=== PATIENT | male | born 1980 | race African-American/Black ===

== ENCOUNTER 2017-05-01 06:45 | Inpatient (IN) | payer SELFPAY ==
[~2017-05-01] VITALS: Ht 172.7 cm; Wt 123.8 kg
--- NOTE | 2017-05-01 06:49 | NUR ---
BIB WHEELCHAIR TO ER BED 4
[2017-05-01 06:55] VITALS: BP 127/72
--- NOTE | 2017-05-01 07:02 | NUR ---
36M BIB SELF C/O LEFT SIDED CHEST PAIN, NON-RADIATING, PRESSURE, 4/10 X LAST NIGHT; PT C/O SHORTNESS OF BREATH WITH PRODUCTIVE COUGH AND YELLOW PHLEGM X LAST NIGHT; PT STATES " I HAVE CHF"; BL CRACKLES HEARD, RR EVEN, DEEP, AND LABORED, TACHYPNEA AND TACHYCARDIA NOTED ON THE MONITOR AT THIS TIME; PT AA&OX4, PERRLA, STATES NO N/V/D AT THIS TIME, SKIN IS WARM/DRY/INTACT; PT RESTING IN BED WITH HOB ELEVATED AND IN LOWEST POSITION; POSITIONED FOR COMFORT; ER MD MADE AWARE OF STATUS. WILL CONTINUE TO MONITOR.
--- NOTE | 2017-05-01 07:04 | NUR ---
ER MD DR. DE JESUS EVALUATING PT AT BEDSIDE.
[2017-05-01] MEDS ORDERED: ASPIRIN 81 MG TAB.CHEW PO ONE (07:10)
[2017-05-01] MEDS ORDERED: NITROGLYCERIN 2% 1 GM PKT TP ONE (07:10)
--- NOTE | 2017-05-01 07:14 | NUR ---
XRAY AT BEDSIDE.
[2017-05-01 07:59] LABS: HEMATOCRIT 40.7 % (36-52); MEAN CORPUSCULAR HEMOGLOBIN 26 pg (27-31); MEAN CORPUSCULAR HGB CONC 32 g/dL (33-37); MEAN CORPUSCULAR VOLUME 81 fL (80-94); PLATELET COUNT (AUTO) 202 K/uL (140-450); RED BLOOD CELL COUNT(AUTO) 5.04 MIL/uL (4.20-6.10); RED CELL DISTRIBUTION WIDTH 15.1 % (11.6-13.7)
[2017-05-01] MEDS ORDERED: FUROSEMIDE 20 MG/2 ML VIAL IVP ONE (08:05)
[2017-05-01 08:09] LABS: ANION GAP 13.6 (8-16); CARBON DIOXIDE 22.8 mmol/L (21-32); CREATININE 1.4 mg/dL (0.7-1.3); POTASSIUM 4.4 mmol/L (3.5-5.1)
[2017-05-01 08:17] LABS: LYMPHOCYTES % (MANUAL) 22 % (20-46); MONOCYTES % (MANUAL) 8 % (5-12)
[2017-05-01 08:24] LABS: ALBUMIN 2.9 g/dL (3.4-5.0); TOTAL BILIRUBIN 0.2 mg/dL (0.0-1.0)
[2017-05-01] MEDS ORDERED: AZITHROMYCIN 500 MG in DEXTROSE 5% 250 ML IV ONE (08:25)
[2017-05-01] MEDS ORDERED: CARV12.5 PO (08:38)
[2017-05-01] MEDS ORDERED: FURO-570 PO (08:38)
[2017-05-01] MEDS ORDERED: BENA20TA PO (08:38)
[2017-05-01] MEDS ORDERED: NACL 0.9% 1,000 ML IV SCH (08:40)
[2017-05-01] MEDS ORDERED: HYDROcodone/APAP 7.5/325 MG 1 TAB PO PRN (08:40)
[2017-05-01] MEDS ORDERED: ACETAMINOPHEN 325 MG TAB PO PRN (08:40)
[2017-05-01] MEDS ORDERED: ONDANSETRON 4 MG/2 ML VIAL IVP PRN (08:40)
[2017-05-01] MEDS ORDERED: cefTRIAXone 1,000 MG VIAL ONE (08:44)
[2017-05-01] MEDS ORDERED: AZITHROMYCIN 500 MG INJ VIAL IV ONE (08:44)
--- NOTE | 2017-05-01 08:52 | NUR ---
REPORT GIVEN TO MARIOLA YOUNGER.
--- NOTE | 2017-05-01 08:52 | NUR ---
ZITHROMAX 500MG ORDERED BY ER MD DR. DE JESUS NOT GIVEN IN ER ROCEPHIN INFUSING AT THIS TIME; ENDORSED ZITHROMAX TO CARISA GARNETT DURING REPORT; ZITHROMAX TAKEN TO FLOOR WITH PATIENT.
[2017-05-01] MEDS: DOCUSATE SODIUM 100 MG GELCAP PO SCH ×2 (09:00→20:21)
--- NOTE | 2017-05-01 09:06 | NUR ---
Patient will be admitted to care of DR. BRIAN. Admited to TELEMETRY. Will go to room 106A. Belongings list completed. Report to MARIOLA YOUNGER.
[2017-05-01] MEDS ORDERED: NITROGLYCERIN 0.4 MG TAB SL PRN (09:10)
[2017-05-01] MEDS ORDERED: ALBUTEROL SULFATE/IPRATROPIU 3 ML SOL IH PRN (09:10)
[2017-05-01 09:15] VITALS: BP 112/69
--- NOTE | 2017-05-01 10:00 | NUR ---
Admitted from ED , with chief complaint of SOB. PT AAOX4, PT ON 2 LPM NASAL CANNULA WITH 96% O2 SATS, NO C/O PAIN AT THIS TIME. IV TO LT WRIST PATENT AND INTACT. CHEST, DIMINISHED AIR ENTRY TO THE BASES, CRACKLES HEARD BILATERALLY. PT IS A 36 y/o ,Male, Cooperative,oriented to call light, bed, phone,television, bathroom, smoking policy,visiting hours, procedures, ID bracelet on. Belongings list checked. INSTRUCTED PT TO CALL FOR ASSISTANCE, CALL LIGHT WITHIN REACH, PT VERBALIZED UNDERSTANDING.
[2017-05-01 10:05] LABS: CHOL/HDL RATIO 3.5 (1-4.5); FREE T4 (FREE THYROXINE) 1.08 ng/dL (0.76-1.46); MAGNESIUM 1.9 mg/dL (1.8-2.4); PHOSPHORUS 3.4 mg/dL (2.5-4.9); THYROID STIMULATING HORMONE 2.46 uIU/mL (0.34-3.74)
[2017-05-01] MEDS ORDERED: LEVOFLOXACIN 750 MG/D5W PREMIX 150 ML IV SCH (11:00)
[2017-05-01] MEDS ORDERED: guaiFENesin 600 MG TABER PO SCH ×2 (11:31→21:00)
[2017-05-01 11:39] LABS: APPEARANCE,URINE CLEAR (CLEAR); BILIRUBIN,URINE NEGATIVE (NEGATIVE); BLOOD, URINE NEGATIVE (NEGATIVE); COLOR,URINE YELLOW (YELLOW); LEUKOCYTE ESTERASE ,URINE NEGATIVE (NEGATIVE); NITRITE, URINE NEGATIVE (NEGATIVE); UGLUCOSE NEGATIVE (NEGATIVE)
[2017-05-01 11:45] LABS: BARBITURATE, URINE NEG. ng/ml (NEG <=200); BENZODIAZEPINE, URINE NEG. ng/mL (NEG <=200); CANNABINOID, URINE NEG. ng/mL (NEG <=50); COCAINE, URINE NEG. ng/mL (NEG <=300); OPIATE, URINE NEG. ng/mL (NEG <=2000); PHENCYCLIDINE SCREEN,URINE NEG. ng/mL (NEG <=25)
[2017-05-01 12:00] VITALS: BP 120/75
--- NOTE | 2017-05-01 12:00 | NUR ---
PT SEEN BY DR. LEDBETTER WITH NEW ORDERS.
[2017-05-01] MEDS: FUROSEMIDE 40 MG/4 ML VIAL IVP SCH ×2 (12:47→20:13)
[2017-05-01] MEDS: ALBUTEROL SULFATE/IPRATROPIU 3 ML SOL IH SCH ×2 (12:51→18:40)
[2017-05-01] MEDS: PIPER/TAZO 3.375GM/D5W PREMIX 50 ML IV SCH ×2 (13:00→20:14)
--- NOTE | 2017-05-01 13:10 | NUR ---
PT PLACED ON BIPAP FOR DISTRESS PER DR. LEDBETTER SETTINGS 03/09 RR14 FIO2 40% TO USE PRN FOR DISTRESS ALARMS ON AND FUNCTIONING PROPERLY, TAYLOR LOZADA AT HOB B\S ARE CLEAR PT IS SITTING ON SIDE OF BED Addendum: 05/01/17 at 1320 by Génesis Ordonez RT TX GIVEN BEFORE PLACING ON BIPAP
--- NOTE | 2017-05-01 13:57 | NUR ---
PT TOOK BIPAP OFF HE STATES ITS NOT WORKING DOES NOT WANT IT NOW NURSE INFECTION CONTROLAHMET SANTORO AT BEDSIDE PLACED PT ON 3LNC
--- NOTE | 2017-05-01 15:15 | NUR ---
PT REFUSED VENOUS DOPPLER ULTRASOUND TO R/O DVT, STATED HE DOES NOT NEED IT. RISKS AND CONSEQUENCES EXPLAINED TO PT. DR. ALLEN NOTIFIED. Addendum: 05/01/17 at 1557 by Kathrin Abdullahi RN RISKS AND CONSEQUENCES EXPLAINED TO PT, VERBALIZED UNDERSTANDING.
--- NOTE | 2017-05-01 15:55 | NUR ---
PT BLOOD DRAW FOR SCHEDULED TROPONIN. RISKS AND CONSEQUENCES EXPLAINED TO PT, VERBALIZED UNDERSTANDING. DR. ALLEN NOTIFIED.
[2017-05-01 16:00] VITALS: BP 93/63
--- NOTE | 2017-05-01 18:10 | NUR ---
PT SEEN BY DR. GIFFORD WITH NEW ORDERS.
--- NOTE | 2017-05-01 19:06 | NUR ---
PT RESTING. NO SOB NOTED. NO COMPLAINTS MADE AT THIS TIME. WILL ENDORSE TO NEXT SHIFT NURSE FOR CONTINUITY OF CARE.
--- NOTE | 2017-05-01 19:07 | NUR ---
PT RESTING. NO SOB NOTED. NO COMPLAINTS MADE AT THIS TIME. WILL ENDORSE TO NEXT SHIFT NURSE FOR CONTINUITY OF CARE.
--- NOTE | 2017-05-01 19:50 | NUR ---
PT SEEN SLEEPING ON HIS STOMACH, EASILY AROUSABLE, STATED HE PREFER TO SLEEP ON THIS POSITION, NO SOB NOTED, VITAL SIGNS STABLE, ST ON TELE, DENIES CHEST PAIN, CONTINUED ON O2 AT 3L/NC, ALL NEEDS ATTENDED.
[2017-05-01 20:00] VITALS: BP 108/67
[2017-05-01] MEDS: guaiFENesin 600 MG TABER PO SCH (20:13)
[2017-05-01] MEDS: CARVEDILOL 12.5 MG TAB PO SCH (20:14)
--- NOTE | 2017-05-01 20:15 | NUR ---
DUE MEDS ADMINISTERED, REFUSED COLACE AND LIPITOR STATED "I DON'T NEED THAT", RISK AND BENEFITS EXPLAINED BUT PT STILL REFUSED, ALL NEEDS ATTENDED.
[2017-05-01] MEDS: ATORVASTATIN 20 MG TAB PO SCH (20:21)
[2017-05-01] MEDS ORDERED: methylPREDNISolone SS 40 MG/ML VIAL IVP SCH (21:00)
--- NOTE | 2017-05-01 22:00 | NUR ---
PT VOIDED 1000ML CLEAR YELLOW URINE PER URINAL, NO SOB NOTED, MONITORED CLOSELY.
[2017-05-02] VITALS: BP 106/60
--- NOTE | 2017-05-02 | NUR ---
PT SLEEPING ON HIS STOMACH, EASILY AROUSABLE, NO SIGNS OF DISTRESS, VITAL SIGNS STABLE, CONTINUE TO MONITOR CLOSELY.
--- NOTE | 2017-05-02 02:50 | NUR ---
PT SLEEPING, NO SIGNS OF DISTRESS, REPORT GIVEN TO MARIOLA ANDERSON FOR CONTINUITY OF CARE.
--- NOTE | 2017-05-02 02:55 | NUR ---
RECEIVED REPORT FROM JOSELUIS. PT IS SLEEPING, EASY TO AROUSE. ON 02 2L NC. NO SIGNS OF ACUTE DISTRESS NOTED. RESPIRATIONS EVEN AND UNLABORED. SKIN COLOR APPROPRIATE TO ETHNICITY. IV ACCESS INTACT AND PATENT. BED IN LOW POSITION, BILATERAL HALF SIDE RAILS UP, CALL LIGHT WITHIN REACH, WILL CONTINUE TO MONITOR.
[2017-05-02 04:00] VITALS: BP 117/57
[2017-05-02] MEDS: PIPER/TAZO 3.375GM/D5W PREMIX 50 ML IV SCH ×3 (05:38→21:35)
[2017-05-02] MEDS: FUROSEMIDE 40 MG/4 ML VIAL IVP SCH ×3 (05:39→21:00)
[2017-05-02] MEDS: ALBUTEROL SULFATE/IPRATROPIU 3 ML SOL IH SCH ×3 (07:02→18:46)
--- NOTE | 2017-05-02 07:02 | NUR ---
PT WANTED TO SLEEP REFUSED BREATHING TX NO SIGNS OF DISTRESS NOTED AT THIS TIME
[2017-05-02 07:04] LABS: BASOPHILS # (AUTO) 0.4 K/uL (0.00-0.22); BASOPHILS % (AUTO) 3.2 % (0.0-2.0); EOSINOPHILS # (AUTO) 0.1 K/uL (0-0.4); HEMATOCRIT 38.5 % (36-52); HEMOGLOBIN 12.4 g/dL (12.0-18.0); LYMPHOCYTES # (AUTO) 1.8 K/uL (2.0-11.5); MEAN CORPUSCULAR HEMOGLOBIN 26 pg (27-31); MEAN CORPUSCULAR HGB CONC 32 g/dL (33-37); MEAN CORPUSCULAR VOLUME 81 fL (80-94); MONOCYTES # (AUTO) 0.5 K/uL (0.8-1.0); MONOCYTES % (AUTO) 3.9 % (1.7-9.3); NEUTROPHILS # (AUTO) 8.7 K/uL (1.8-7.7); NEUTROPHILS % (AUTO) 75.9 % (42.2-75.2); PLATELET COUNT (AUTO) 189 K/uL (140-450); RED BLOOD CELL COUNT(AUTO) 4.74 MIL/uL (4.20-6.10); RED CELL DISTRIBUTION WIDTH 15.2 % (11.6-13.7); WHITE BLOOD COUNT (AUTO) 11.5 K/uL (4.8-10.8)
[2017-05-02 07:18] LABS: MAGNESIUM 1.9 mg/dL (1.8-2.4); PHOSPHORUS 4.6 mg/dL (2.5-4.9)
[2017-05-02 07:22] LABS: ANION GAP 11.5 (8-16); CARBON DIOXIDE 27.6 mmol/L (21-32); CREATININE 1.6 mg/dL (0.7-1.3); POTASSIUM 4.1 mmol/L (3.5-5.1)
--- NOTE | 2017-05-02 07:25 | NUR ---
ENDORSED PT TO AM NURSE FOR CONTINUITY OF CARE. PT IS IN STABLE CONDITION.
--- NOTE | 2017-05-02 07:30 | NUR ---
RECEIVED PT AWAKE. NO SOB NOTED, ON O2 AT 2 LPM VIA NASAL CANNULA. NO C/O PAIN AT THIS TIME. IV TO LEFT HAND PATENT AND INTACT.CHEST DIMINISHED AIR ENTRY TO THE BASES, SLIGHT CRACKLES HEARD BILATERALLY. ABDOMEN SOFT, BOWEL SOUNDS PRESENT. INSTRUCTED PT TO CALL FOR ASSISTANCE, CALL LIGHT WITHIN REACH, PT VERBALIZED UNDERSTANDING.
[2017-05-02 08:00] VITALS: BP 92/49
--- NOTE | 2017-05-02 08:00 | NUR ---
Patient's Plan of Care was discussed and reviewed with GARMENT FITTER: AVRIL SIEGEL Addendum: 05/02/17 at 1028 by Kathrin Abdullahi RN DISREGARD ABOVE NOTES, WRONG PT.
[2017-05-02] MEDS ORDERED: FUROSEMIDE 40 MG/4 ML VIAL IVP SCH (09:00)
[2017-05-02] MEDS: DOCUSATE SODIUM 100 MG GELCAP PO SCH ×2 (09:00→21:35)
--- NOTE | 2017-05-02 09:03 | NUR ---
PATIENT HAS BEEN SCREENED AND CATEGORIZED HIGH NUTRITION RISK. PATIENT WILL BE SEEN WITHIN 1-2 DAYS OF ADMISSION. 05/02/17-05/03/[address]
[2017-05-02] MEDS: SPIRONOLACTONE 25 MG TAB PO SCH (09:58)
[2017-05-02] MEDS: guaiFENesin 600 MG TABER PO SCH ×2 (09:58→21:35)
[2017-05-02] MEDS: CARVEDILOL 12.5 MG TAB PO SCH ×2 (09:58→21:00)
[2017-05-02] MEDS: ASPIRIN 81 MG TAB.CHEW PO SCH (09:58)
[2017-05-02 12:00] VITALS: BP 94/62
--- NOTE | 2017-05-02 13:40 | NUR ---
WOKE PT UP TO GIVE BREATHING TX PT STATED HE WANTED TO SLEEP AND WOULD CALL IF HE NEEDED ON NO SIGNS OF DISTRESS NOTED AT THIS TIME
[2017-05-02 14:20] VITALS: BP 103/60
--- NOTE | 2017-05-02 16:30 | NUR ---
PT REFUSED VITAL SIGNS TAKEN AND BLOOD DRAW. DR. EVANS NOTIFIED.
--- NOTE | 2017-05-02 18:55 | NUR ---
PT RESTING. NO SOB NOTED. NO SIGNS OF PAIN. WILL ENDORSE TO NEXT SHIFT NURSE FOR CONTINUITY OF CARE.
--- NOTE | 2017-05-02 19:15 | NUR ---
RECEIVED REPORT FROM DAY SHIFT NURSE. PT IN BED, PRONE POSITION. NO DISTRESS NOTED. IV TO LEFT WRIST #22G, PATENT AND INTACT. DISCUSSED PLAN OF CARE, PT VERBALIZED UNDERSTANDING. CALL LIGHT WITHIN REACH. WILL CONTINUE TO MONITOR.
[2017-05-02 20:00] VITALS: BP 80/46
--- NOTE | 2017-05-02 21:00 | NUR ---
PT'S BP 80/46 HR 75. REPORTED V/S TO DR. KELLER. BP CHECKED BY DR. KELLER 91/60. ORDERED TO HOLD BP MEDS.
[2017-05-02] MEDS: ATORVASTATIN 20 MG TAB PO SCH (21:35)
[2017-05-03] VITALS: BP 100/66
--- NOTE | 2017-05-03 00:05 | NUR ---
PT SLEEPING. NO S/S DISTRESS. CALL LIGHT WITHIN REACH.
--- NOTE | 2017-05-03 03:10 | NUR ---
PT SLEEPING. NO S/S OF PAIN OR DISCOMFORT. CALL LIGHT WITHIN REACH.
[2017-05-03 04:00] VITALS: BP 102/68
[2017-05-03] MEDS: FUROSEMIDE 40 MG/4 ML VIAL IVP SCH (05:00)
--- NOTE | 2017-05-03 05:20 | NUR ---
BP 102/68, HR 105. REPORTED PT'S V/S TO DR. MESSINA. ORDERED TO HOLD ClearFlow.
[2017-05-03] MEDS: PIPER/TAZO 3.375GM/D5W PREMIX 50 ML IV SCH (05:23)
[2017-05-03 07:00] LABS: BASOPHILS # (AUTO) 0.2 K/uL (0.00-0.22); BASOPHILS % (AUTO) 1.8 % (0.0-2.0); EOSINOPHILS # (AUTO) 0.2 K/uL (0-0.4); EOSINOPHILS % (AUTO) 2.5 % (0.0-4.0); HEMOGLOBIN 12.5 g/dL (12.0-18.0); LYMPHOCYTES # (AUTO) 1.9 K/uL (2.0-11.5); LYMPHOCYTES % (AUTO) 21.2 % (20.5-51.1); MEAN CORPUSCULAR HEMOGLOBIN 27 pg (27-31); MEAN CORPUSCULAR HGB CONC 33 g/dL (33-37); MEAN CORPUSCULAR VOLUME 81 fL (80-94); MONOCYTES # (AUTO) 0.4 K/uL (0.8-1.0); MONOCYTES % (AUTO) 4.8 % (1.7-9.3); NEUTROPHILS # (AUTO) 6.5 K/uL (1.8-7.7); NEUTROPHILS % (AUTO) 69.7 % (42.2-75.2); PLATELET COUNT (AUTO) 176 K/uL (140-450); RED BLOOD CELL COUNT(AUTO) 4.67 MIL/uL (4.20-6.10); RED CELL DISTRIBUTION WIDTH 15.3 % (11.6-13.7); WHITE BLOOD COUNT (AUTO) 9.2 K/uL (4.8-10.8)
--- NOTE | 2017-05-03 07:05 | NUR ---
ENDORSED TO DAY SHIFT NURSE. PT IN STABLE CONDITION.
--- NOTE | 2017-05-03 07:06 | NUR ---
RECEIVED REPORT FROM NIGHT RN, PT SLEEPING IN BED ON RA, WOKE UP PT FOR VITAL SIGNS AND DISCUSSED PLAN OF CARE WITH PT, PT VERBALIZED UNDERSTANDING, IV PATENT AND INTACT, PT DENIES PAIN, SAFETY PRECAUTIOSN TAKEN, CALL LIGHT WITHING REACH, WILL CONT TO MONITOR.
[2017-05-03 07:10] LABS: ANION GAP 13.8 (8-16); CARBON DIOXIDE 27.2 mmol/L (21-32); CREATININE 1.6 mg/dL (0.7-1.3)
[2017-05-03 07:16] LABS: PHOSPHORUS 4.4 mg/dL (2.5-4.9)
[2017-05-03 08:04] VITALS: BP 104/64
[2017-05-03] MEDS: SPIRONOLACTONE 25 MG TAB PO SCH (09:00)
[2017-05-03] MEDS: DOCUSATE SODIUM 100 MG GELCAP PO SCH (09:00)
[2017-05-03] MEDS: ALBUTEROL SULFATE/IPRATROPIU 3 ML SOL IH SCH (09:09)
[2017-05-03] MEDS: CARVEDILOL 12.5 MG TAB PO SCH (10:02)
[2017-05-03] MEDS: guaiFENesin 600 MG TABER PO SCH (10:02)
[2017-05-03] MEDS: ASPIRIN 81 MG TAB.CHEW PO SCH (10:02)
--- NOTE | 2017-05-03 10:10 | NUR ---
DUE MEDICATIONS GIVEN WITH EDUCATION, PT VERBALIZED UNDERSTANDING, PT TOLERATED MEDS WELL, WILL CONT TO MONITOR.
[2017-05-03] MEDS ORDERED: CARV12.5 PO (10:32)
[2017-05-03] MEDS ORDERED: ATOR20TA40 PO (10:32)
[2017-05-03] MEDS ORDERED: FURO-570 PO (10:32)
[2017-05-03] MEDS ORDERED: LISI10TA11 PO (10:32)
[2017-05-03] MEDS ORDERED: LACT1.4C PO (10:34)
[2017-05-03] MEDS ORDERED: SPIR25TA PO (10:34)
[2017-05-03] MEDS ORDERED: LEVO750T2 PO (10:34)
[2017-05-03 11:23] VITALS: BP 104/72
[2017-05-03] MEDS ORDERED: ROBAC PO (11:36)
== END 2017-05-03 11:45 | disposition home or self-care (01) | DRG 871 ==
LOC: MED 06:45 → MTU 08:40
PROVIDERS: ADMIT Family Medicine; ATTEND Family Medicine
DX: A41.9 Sepsis, unspecified organism (principal); J18.9 Pneumonia, unspecified organism; N17.0 Acute kidney failure with tubular necrosis; J96.01 Acute respiratory failure with hypoxia; I50.43 Acute on chronic combined systolic (congestive) and diastolic (congestive) heart failure; E44.0 Moderate protein-calorie malnutrition; I42.9 Cardiomyopathy, unspecified; I11.0 Hypertensive heart disease with heart failure; Z68.41 Body mass index [BMI] 40.0-44.9, adult; E66.9 Obesity, unspecified; Z87.891 Personal history of nicotine dependence; Z79.899 Other long term (current) drug therapy; Z91.11 Patient's noncompliance with dietary regimen
CPT/HCPCS: 36415; 71010; 80048; 80053; 80305; 81003; 82150; 83036; 83605; 83690; 83735; 83880; 84100; 84439; 84443; 84484; 85025; 85610; 85730; 87040; 87081; 87086; 93005; 94640; 96365; 96375; 99285; J0456; J0696; J1940; J1956; J2543; J7060; J7620; Q0092

== ENCOUNTER 2017-11-09 18:07 | Inpatient (IN) | payer BC ==
[~2017-11-09] VITALS: Ht 167.6 cm; Wt 125.2 kg
[~2017-11-09 18:07] MED LIST: ATOR20TA40 PO; CARV12.5 PO; FURO-570 PO; LACT1.4C PO; LEVO750T2 PO; LISI10TA11 PO; ROBAC PO; SPIR25TA PO
[2017-11-09 18:46] VITALS: BP 95/72
--- NOTE | 2017-11-09 18:55 | NUR ---
ADMITS TAKING MEDS AT NOON TODAY---DENIES DIZZINESS NOTABLE HYPOTENSIVE
--- NOTE | 2017-11-09 19:23 | NUR ---
PT AMBULATED TO BED 6
--- NOTE | 2017-11-09 19:50 | NUR ---
37Y/M C/O GENERALIZED ABD PAIN X2 WEEKS W/ DIARRHEA STARTING A FEW DAYS AGO THAT PT STATES IS "VERY DARK". ABD IS ROUND, SOFT, NON TENDER, ACTIVE BS X4. PAIN 03/14 TO GENERALIZED ABD. PT AA&OX4. PMH CHF
--- NOTE | 2017-11-09 19:57 | NUR ---
Dr. Ojeda evaluating patient.
[2017-11-09] MEDS ORDERED: DICYCLOMINE HCL LIQUID 20 MG, ALUMINUM HYD/MAG/SIMETHICONE 30 ML, LIDOCAINE VISCOUS 2% ... PO ONE ×3 (20:15)
[2017-11-09 20:32] LABS: BASOPHILS # (AUTO) 0.1 K/uL (0.00-0.22); BASOPHILS % (AUTO) 1.3 % (0.0-2.0); EOSINOPHILS # (AUTO) 0.1 K/uL (0-0.4); HEMATOCRIT 36.4 % (36-52); HEMOGLOBIN 11.6 g/dL (12.0-18.0); LYMPHOCYTES # (AUTO) 2.2 K/uL (2.0-11.5); LYMPHOCYTES % (AUTO) 20.7 % (20.5-51.1); MEAN CORPUSCULAR HEMOGLOBIN 26 pg (27-31); MEAN CORPUSCULAR HGB CONC 32 g/dL (33-37); MEAN CORPUSCULAR VOLUME 81.1 fL (80-94); MONOCYTES # (AUTO) 0.7 K/uL (0.8-1.0); MONOCYTES % (AUTO) 6.7 % (1.7-9.3); NEUTROPHILS # (AUTO) 7.5 K/uL (1.8-7.7); NEUTROPHILS % (AUTO) 70.3 % (42.2-75.2); PLATELET COUNT (AUTO) 195 K/uL (140-450); RED BLOOD CELL COUNT(AUTO) 4.49 MIL/uL (4.20-6.10); RED CELL DISTRIBUTION WIDTH 16.8 % (11.6-13.7); WHITE BLOOD COUNT (AUTO) 10.7 K/uL (4.8-10.8)
[2017-11-09 20:59] LABS: PROTHROMBIN TIME 12.6 secs (10.8-13.4)
--- NOTE | 2017-11-09 21:00 | NUR ---
PT SITTING IN BEDSIDE CHAIR, VSS, PT IS CURRENTLY TALKING ON PHONE.
[2017-11-09 21:23] LABS: ANION GAP 17.7 (8-16); CARBON DIOXIDE 20.7 mmol/L (21-32); CREATININE 1.7 mg/dL (0.7-1.3); POTASSIUM 5.4 mmol/L (3.5-5.1)
[2017-11-09 21:25] LABS: CREATINE KINASE MB 0.8 ng/mL (0-3.6)
[2017-11-09 21:26] LABS: ALBUMIN 3.1 g/dL (3.4-5.0); TOTAL BILIRUBIN 0.6 mg/dL (0.0-1.0)
[2017-11-09] MEDS ORDERED: SODIUM POLYSTYRENE 15 GM/60 ML UDBTL PO ONE (21:50)
[2017-11-09] MEDS ORDERED: ACETAMINOPHEN 325 MG TAB PO PRN (22:10)
[2017-11-09] MEDS ORDERED: HYDROcodone/APAP 7.5/325 MG 1 TAB PO PRN (22:10)
[2017-11-09] MEDS ORDERED: DOCUSATE SODIUM 100 MG GELCAP PO PRN (22:10)
--- NOTE | 2017-11-09 22:26 | NUR ---
Pt transferred to Tele via BED 104A WITH MARIOLA BOONE AND EMT GENESIS.
--- NOTE | 2017-11-09 22:27 | NUR ---
Patient will be admitted to care of DR. GASPAR. Admited to TELE. Will go to [id number]. Belongings list completed. Report to CHARLENE.
[2017-11-09 22:59] LABS: CHOL/HDL RATIO 2.9 (1-4.5); FREE T4 (FREE THYROXINE) 1.25 ng/dL (0.76-1.46); MAGNESIUM 2.1 mg/dL (1.8-2.4); PHOSPHORUS 4.8 mg/dL (2.5-4.9); THYROID STIMULATING HORMONE 1.81 uIU/mL (0.34-3.74)
[2017-11-09 23:05] VITALS: BP 90/45
[2017-11-09] MEDS: NACL 0.9% 1,000 ML IV SCH (23:38)
--- NOTE | 2017-11-09 23:40 | NUR ---
ADMITTED PATIENT TO THE TELE UNIT, PATIENT AWAKE ALERT ORIENTED X4, NO S/S OF DISTRESS NOTED, RESPIRATION EVEN AND UNLABORED, ON ROOM AIR. IV PATENT AND INTACT, TELE MONITOR PLACED ON PATIENT, PLAN OF CARE DISCUSSED, PATIENT VERBALIZED UNDERSTANDING. CALL LIGHT WITHIN REACH, SAFETY MEASURE ENSURED, WILL CONTINUE TO MONITOR.
[2017-11-09 23:48] LABS: APPEARANCE,URINE CLEAR (CLEAR); BILIRUBIN,URINE NEGATIVE (NEGATIVE); BLOOD, URINE NEGATIVE (NEGATIVE); COLOR,URINE YELLOW (YELLOW); LEUKOCYTE ESTERASE ,URINE NEGATIVE (NEGATIVE); NITRITE, URINE NEGATIVE (NEGATIVE); PH,URINE 5.5 (5.0-9.0); UGLUCOSE NEGATIVE (NEGATIVE)
[2017-11-09 23:54] LABS: BARBITURATE, URINE NEG. ng/ml (NEG <=200); BENZODIAZEPINE, URINE NEG. ng/mL (NEG <=200); CANNABINOID, URINE NEG. ng/mL (NEG <=50); COCAINE, URINE NEG. ng/mL (NEG <=300); OPIATE, URINE NEG. ng/mL (NEG <=2000); PHENCYCLIDINE SCREEN,URINE NEG. ng/mL (NEG <=25)
[2017-11-10] MEDS ORDERED: PANTOPRAZOLE 40 MG INJ VIAL IVP SCH
--- NOTE | 2017-11-10 00:45 | NUR ---
PATIENT ASKED FOR FOOD, INFORMED PATIENT THAT DOCTOR ORDERED NOTHING BY MOUTH, PATIENT'S UPSET AND DR. BERGER TALKED TO THE PATIENT AT THE BEDSIDE.
--- NOTE | 2017-11-10 01:16 | NUR ---
DR. BERGER CHANGED DIET TO CLEAR LIQUID DIET, OFFERED PATIENT A CUP OF ICE, PATIENT IS PLAYING GAME NOW.
[2017-11-10 04:00] VITALS: BP 98/65
--- NOTE | 2017-11-10 04:29 | NUR ---
VITAL SIGNS STABLE, NO S/S OF DISTRESS NOTED, RESPIRATION EVEN AND UNLABORED, CALL LIGHT WITHIN REACH, SAFETY MEASURE ENSURED, WILL CONTINUE TO MONITOR.
[2017-11-10 07:14] LABS: BASOPHILS # (AUTO) 0.1 K/uL (0.00-0.22); EOSINOPHILS # (AUTO) 0.1 K/uL (0-0.4); EOSINOPHILS % (AUTO) 0.6 % (0.0-4.0); HEMATOCRIT 35.2 % (36-52); HEMOGLOBIN 11.4 g/dL (12.0-18.0); LYMPHOCYTES # (AUTO) 2.1 K/uL (2.0-11.5); LYMPHOCYTES % (AUTO) 23.2 % (20.5-51.1); MEAN CORPUSCULAR HEMOGLOBIN 26 pg (27-31); MEAN CORPUSCULAR HGB CONC 32 g/dL (33-37); MEAN CORPUSCULAR VOLUME 81.7 fL (80-94); MONOCYTES # (AUTO) 0.4 K/uL (0.8-1.0); MONOCYTES % (AUTO) 4.2 % (1.7-9.3); NEUTROPHILS # (AUTO) 6.4 K/uL (1.8-7.7); PLATELET COUNT (AUTO) 175 K/uL (140-450); RED BLOOD CELL COUNT(AUTO) 4.31 MIL/uL (4.20-6.10); RED CELL DISTRIBUTION WIDTH 16.5 % (11.6-13.7)
--- NOTE | 2017-11-10 07:28 | NUR ---
ENDORSED PLAN OF CARE TO RN NOVEMBER, PATIENT IS IN STABLE CONDITION.
[2017-11-10 07:37] LABS: ANION GAP 16.6 (8-16); CARBON DIOXIDE 22.8 mmol/L (21-32); CREATININE 1.6 mg/dL (0.7-1.3); POTASSIUM 4.4 mmol/L (3.5-5.1)
--- NOTE | 2017-11-10 08:00 | NUR ---
ASSUMED CARE OF PATIENT. PATIENT WAS SLEEP AWAKEN EASILY AND IS ALERT AND ORIENTED ABLE TO MAKE NEEDS KNOWN. DENIES PAIN OR DISCOMFORT AT THIS TIME. IS CURRENTLY NPO FOR CT ABDOMEN,
[2017-11-10 08:12] VITALS: BP 89/50
[2017-11-10] MEDS: NACL 0.9% 1,000 ML IV SCH (08:15)
[2017-11-10] MEDS: CARVEDILOL 12.5 MG TAB PO SCH ×2 (08:23→20:03)
--- NOTE | 2017-11-10 08:43 | NUR ---
PATIENT HAS BEEN SCREENED AND CATEGORIZED HIGH NUTRITION RISK. PATIENT WILL BE SEEN WITHIN 1-2 DAYS OF ADMISSION. 11/10/17 11/11/[address]
[2017-11-10] MEDS: FUROSEMIDE 20 MG TAB PO SCH (09:00)
[2017-11-10] MEDS ORDERED: LISINOPRIL 10 MG TAB PO SCH (09:00)
[2017-11-10] MEDS ORDERED: SPIRONOLACTONE 25 MG TAB PO SCH (09:00)
[2017-11-10] MEDS ORDERED: FUROSEMIDE 40 MG TAB PO SCH (09:00)
[2017-11-10] MEDS ORDERED: HYOSCYAMINE 0.125 MG TAB PO PRN (10:50)
--- NOTE | 2017-11-10 11:00 | NUR ---
PATIENT RETURNED TO ROOM FROM CT. NO C/O PAIN VOICED AT THIS TIME
--- NOTE | 2017-11-10 12:30 | NUR ---
SPOKE TO DR GAO REGARDING PATIENTS BP. ALL MEDS WERE HELD THIS MORNING BECAUSE OF LLOW BP 89/50 DR SIMA HAD DECREASE DOSE OF LASIX FROM 40MG TO 20MG. BP NOW AT 88/64 MANUALLY ADVIDED TO CONTINUE TO HOLD MEDS. PATIENT IS RESTING QUIETLY WITHOUT EVIDENCE OF PAIN OR DISCOMFORT
[2017-11-10 13:06] VITALS: BP 88/64
[2017-11-10] MEDS: PANTOPRAZOLE 40 MG INJ VIAL IVP SCH (13:09)
--- NOTE | 2017-11-10 14:54 | NUR ---
11/10/17 RD INITIAL ASSESSMENT COMPLETED PLEASE REFER TO NUTRITION ASSESSMENT UNDER CARE ACTIVITY FOR ESTIMATED NUTRITIONAL NEEDS. 1. RECOMMEND CARDIAC DIET IN ADDITION TO RENAL ORAL DIET. 2. RD TO FOLLOW-UP 2-3 DAYS, HIGH RISK ROSS [address]
--- NOTE | 2017-11-10 18:23 | NUR ---
DR PACHECO HERE TO SEE PATIENT . LAST BP WNL AT 122/74 WITH PATIENT SITTING AT THE SIDE OF THE BED. NO C/O PAIN OR NAUSEA THIS SHIFT. IV NOW CONVERTED TO S/L
[2017-11-10 18:26] VITALS: BP 122/74
--- NOTE | 2017-11-10 19:22 | NUR ---
PATIENT SIGNED RELEASE OF INFORMATION FORM FOR [facility], FORM GIVEN TO [employer] TO FAX TO HOSPITAL REPORT GIVEN TO TANO FITZGERALD RN
--- NOTE | 2017-11-10 19:23 | NUR ---
PATIENT REPORT RECEIVED FROM MORNING NURSE AT BEDSIDE. PATIENT IS RESTING COMFORTABLY IN BED. NO SIGNS AND SYMPTOMS OF DISTRESS NOTED. NO COMPLAINTS OF PAIN AT THIS TIME. PATIENT IS SALINE LOCKED. PATIENT IS CURRENTLY ON ROOM AIR, NO C/O SOB AT THIS TIME. PLAN OF CARE DISCUSSED WITH PATIENT. PATIENT VERBALIZED UNDERSTANDING. BED IN LOWEST POSITION, SIDE RAILS UP AND CALL LIGHT WITHIN REACH. WILL CONTINUE TO MONITOR.
[2017-11-10 20:00] VITALS: BP 97/55
--- NOTE | 2017-11-10 20:12 | NUR ---
COREG HELD DUE TO DECREASED BP OF 97/55.
--- NOTE | 2017-11-10 20:40 | NUR ---
PATIENT SEEN BY DR. BERGER. PLAN OF CARE DISCUSSED. PATIENT VERBALIZED UNDERSTANDING
--- NOTE | 2017-11-10 21:20 | NUR ---
PATIENT TRANSFERRED FROM 104A TO 106B
[2017-11-10] MEDS ORDERED: FUROSEMIDE 20 MG/2 ML VIAL IVP SCH (23:00)
[2017-11-11] VITALS: BP 115/69
--- NOTE | 2017-11-11 | NUR ---
CHECKED ON PATIENT. PATIENT RESTING COMFORTABLY IN BED. NO SIGNS AND SYMPTOMS OF DISTRESS NOTED. BREATHING EVEN AND UNLABORED. WILL CONTINUE TO MONITOR.
[2017-11-11] MEDS ORDERED: guaiFENesin DM 200/20 MG-10 ML 10 ML UDC PO PRN (02:20)
--- NOTE | 2017-11-11 03:00 | NUR ---
CHECKED ON PATIENT PATIENT RESTING COMFORTABLY IN BED. NO SIGNS AND SYMPTOMS OF DISTRESS NOTED. BREATHING EVEN AND UNLABORED. WILL CONTINUE TO MONITOR.
[2017-11-11 04:00] VITALS: BP 101/58
--- NOTE | 2017-11-11 05:20 | NUR ---
PATIENT REQUESTED TO SEE DR BERGER. DR BERGER IN TO SEE PATIENT
--- NOTE | 2017-11-11 07:18 | NUR ---
PATIENT REPORT GIVEN TO MORNING NURSE AT BEDSIDE. PATIENT IS IN STABLE CONDITION
--- NOTE | 2017-11-11 07:19 | NUR ---
REPORT RECEIVED FROM FOREST FIRE EQUIPMENT OPERATOR NURSE AT BEDSIDE FOR CONTINUITY OF CARE. PATIENT IS RESTING IN BED, AOX4, NO SIGNS AND SYMPTOMS OF DISTRESS OR SOB NOTED ON ROOM AIR. NO COMPLAINTS OF PAIN AT THIS TIME. PATIENT IS SALINE LOCKED. PLAN OF CARE DISCUSSED WITH PATIENT. PATIENT VERBALIZED UNDERSTANDING. PATIENT COMPLAINED ABOUT NOT RECEIVING HIS LASIX AND THE FLUID BUILDUP IN HIS LUNGS PREVENTING HIM FROM "SLEEPING AND FEELING COMFORTABLE", RN EXPLAINED IT WAS DUE TO HIS HYPOTENSION. SAFETY PRECAUTION IN PLACE, BED IN LOWEST POSITION, SIDE RAILS UP AND CALL LIGHT WITHIN REACH. WILL CONTINUE TO MONITOR.
--- NOTE | 2017-11-11 07:40 | NUR ---
PATIENT BP 110/71 HR 114. INFORMED PATIENT THAT HIS LASIX WILL BE GIVEN THIS AM AFTER BREAKFAST. PATIENT VERBALIZED UNDERSTANDING AND IS SITTING UP AT SIDE OF BED EATING HIS BREAKFAST. NO SIGNS OF DISTRESS OR SOB NOTED ON ROOM AIR. PATIENT DENIES PAIN AT THE MOMENT. SAFETY PRECAUTION IN PLACE, CALL LIGHT WITHIN REACH. WILL CONTINUE TO MONITOR PATIENT.
[2017-11-11 08:00] VITALS: BP 110/71
[2017-11-11] MEDS ORDERED: DILTIAZEM 25 MG/5 ML VIAL IVP SCH (08:10)
[2017-11-11 08:16] LABS: T4 (THYROXINE) 6.6 ug/dL (4.5-12.0)
--- NOTE | 2017-11-11 08:30 | NUR ---
ORDERED MEDICATIONS ABOUT TO BE GIVEN, PATIENT FOUND OUT LASIX WAS ORAL INSTEAD OF IVP, SO REFUSED THE REST OF THE MEDICATIONS UNTIL THE ORAL LASIX CAN BE CHANGED TO IVP. RN INFORMED PATIENT THAT SHE WILL PASS HIS REQUEST TO THE DOCTORS. DOCTORS MAKING THEIR ROUNDS.
[2017-11-11] MEDS: PANTOPRAZOLE 40 MG INJ VIAL IVP SCH (09:00)
--- NOTE | 2017-11-11 09:05 | NUR ---
DOCTORS IN THE SEE THE PATIENT. PATIENT COMPLAINED ABOUT NOT RECEIVED HIS LASIX AND HIS HEART MEDICATIONS. DOCTORS EXPLAINED IT WAS DUE TO HIS HYPOTENSION. PATIENT VERBALIZED UNDERSTANDING BUT IS ANGRY AND FRUSTRATED AND WANTS TO GO HOME. RN SPOKE TO DR. KENNEDY ABOUT PATIENT REQUESTING ORAL LASIX TO BE SWITCHED WITH IVP LASIX. NEW ORDERS IN FOR IVP 10 MG LASIX. WILL ADMINISTERED ONCE VERIFIED BY PHARMACY. PATIENT UPDATED WITH THIS INFORMATION. HE VERBALIZED UNDERSTANDING.
[2017-11-11] MEDS: CARVEDILOL 12.5 MG TAB PO SCH (09:14)
[2017-11-11] MEDS: FUROSEMIDE 20 MG TAB PO SCH (09:14)
--- NOTE | 2017-11-11 09:14 | NUR ---
ORAL MEDICATIONS GIVEN. PATIENT TOLERATED THEM WELL. IVP MEDICATIONS CANNOT BE GIVEN AT THE MOMENT BECAUSE IV INFILTRATED. IV REMOVED, IV CATHETER INTACT, MINIMAL BLOOD NOTED. PATIENT DOES NOT WANT ANOTHER IV TO BE INSERTED BECAUSE HE IS A HARD STICK AND PATIENT STATES THAT "IT REALLY HURTS". RN PERSUADED PATIENT TO ALLOW ONE TRY. PATIENT VERBALIZED UNDERSTANDING. WILL REQUEST WALLPAPER INSTALLERDEONNA, TO INSERT IV. PATIENT CURRENTLY SITTING ON SIDE OF BED WITH NON PRODUCTIVE COUGH. PATIENT HAS ANXIETY AND WANTS TO GO AMA. RN REQUEST THAT PATIENT WAIT UNTIL IV IS INSERTED OR NOT, THEN AMA WILL BE DISCUSSED. PATIENT VERBALIZED UNDERSTANDING. SAFETY PRECAUTION IN PLACE, CALL LIGHT WITHIN REACH. WILL CONTINUE TO MONITOR PATIENT.
[2017-11-11] MEDS: FUROSEMIDE 20 MG/2 ML VIAL IVP SCH ×2 (09:30→10:36)
--- NOTE | 2017-11-11 09:40 | NUR ---
IV INSERTION UNSUCCESSFUL, PATIENT REFUSED FURTHER ATTEMPTS. PATIENT ONCE AGAIN REQUESTED AMA PAPERS. AMA PAPERS GIVEN. PATIENT DOES NOT WANT TO SPEAK TO THE DOCTORS, HE JUST WANTS TO GO HOME. TELE MONITOR REMOVED, ID BANDS CUT, PATIENT WILL NOW CHANGE INTO HIS OWN CLOTHING AND GET READY TO LEAVE THE FLOOR.
--- NOTE | 2017-11-11 09:55 | NUR ---
PATIENT WHEELED OFF FLOOR BY RN TO PATIENT'S CARE IN [facility]. PATIENT THEN AMBULATED ON STEADY GAIT TO HIS CAR TO DRIVE HOME. PATIENT TOOK ALL HIS BELONGINGS WITH HIM. PATIENT IN STABLE CONDITION. Addendum: 11/11/17 at 1104 by Man Mathews RN PATIENT'S CAR
== END 2017-11-11 09:55 | disposition left against medical advice (07) | DRG 682 ==
LOC: MED 18:07 → MTU 22:12
PROVIDERS: ADMIT General Practice; ATTEND General Practice
DX: N17.0 Acute kidney failure with tubular necrosis (principal); I50.43 Acute on chronic combined systolic (congestive) and diastolic (congestive) heart failure; E44.0 Moderate protein-calorie malnutrition; E87.1 Hypo-osmolality and hyponatremia; M30.3 Mucocutaneous lymph node syndrome [Kawasaki]; Z68.41 Body mass index [BMI] 40.0-44.9, adult; I42.9 Cardiomyopathy, unspecified; K21.9 Gastro-esophageal reflux disease without esophagitis; K29.70 Gastritis, unspecified, without bleeding; E87.5 Hyperkalemia; E66.01 Morbid (severe) obesity due to excess calories; R73.03 Prediabetes; D64.9 Anemia, unspecified; F17.200 Nicotine dependence, unspecified, uncomplicated; Z53.21 Procedure and treatment not carried out due to patient leaving prior to being seen by health care provider; I10 Essential (primary) hypertension; Z79.899 Other long term (current) drug therapy
CPT/HCPCS: 36415; 71045; 80048; 80053; 80305; 81003; 82150; 82550; 82553; 83036; 83690; 83735; 83880; 84100; 84436; 84439; 84443; 84479; 84484; 85025; 85610; 85730; 86886; 86900; 86901; 87081; 99285; C9113; J1940; J3490; J7030